=== PATIENT | female | born 1950 | race Caucasian/White ===

== ENCOUNTER → 2018-02-14 | Outpatient (CLI) | payer OTHER, MEDICAID ==
[~2018-02-14] MED LIST: ACIDOPHILUS1 EAC4 PO; AMITRIPTYLINE H25 M2 PO; AMITRIPTYLINE H50 M4 PO; ASPIR 8181 MG PO; ATORVASTATIN CA40 MG PO; B-12500 MCG PO; BACTRIM DS TAB1 EACH PO; BISACODYL SUPP10 MG; BOOST BREEZE237 ML PO; CARBIDOPA-LEVO1 EAC9 PO; CARBIDOPA25 MG PO; CELEXA20 MG PO; CHANTIX0.5 MG PO; CITALOPRAM HBR40 MG PO; CLEOCIN HCL300 MG PO; CLONAZEPAM 0.50.5 M1 PO; CLONAZEPAM 1 MG1 M1 PO; CLONAZEPAM0.5 MG PO; COLACE100 MG PO; DAKIN'S473 M1; ENZYME DIGEST1 EACH PO; FISH OIL 1,001000 M2 PO; GAS RELIEF80 MG PO; HYDROCODON-ACE1 EAC7 PO; HYDROCODONE-ACE15 ML PER TUBE; HYDROCODONE-ACE15 ML PO; HYDROCORTISONE30 G9; IRON325 PO; LEVOTHYROXIN0.125 M1 PO; LEVOTHYROXIN0.137 M1 PO; LEVOTHYROXINE 0.15MG PO; LIDODERM1 EACH TOP; LINEZOLID600 MG PO; LIPITOR80 MG PO; MACROBID 100 M100 M1 PO; MELATIN3 MG PO; MELATONIN5 M4 PO; MIRAPEX0.5 MG PO; MIRAPEX1 MG PO; NEURONTIN300 MG PO; NEURONTIN600 MG PO; NITROMIST8.5 GM SUBLING; NITROSTAT0.4 M1 SUBLING; NORCO 10-325 T1 EACH PO; NORCO 5-325 TA1 EACH PO; OXYCODONE HCL E10 MG PO; OXYCODONE HCL10 MG PO; PERCOCET 5-3251 EACH PO; PERCOCET PO; PHENERGAN 25 MG25 M1 PO; PHENERGAN 25 MG25 MG PO; PLAVIX 75 MG TA75 M1 PO; PROBIOTIC1 EAC1 PO; PROMOD946 ML; PROTONIX40 M1 PO; REQUIP 1 MG TABL1 M1 PO; ROXICODONE5 M2 PO; SENNA PLUS TAB1 EACH PO; SENOKOT-S1 TA1 PO; SERTRALINE HCL100 MG PO; SSD CREAM 1% 5050 GM TOP; SYNTHROID150 MCG PO; TRAMADOL 50 MG50 MG PO; TRANSDERM-SCO1 PATC1 TD; TRAZODONE HCL50 MG PO; TRINATE TABLET1 TAB PO; TYLENOL325 MG PO; VANCOMYCIN1 GM/1001 IV; VITAMIN D1000 UNI1 PO; VITAMINC500 PO; XANAX 0.5 MG0.5 MG PO; ZOFRAN ODT4 MG DISSOLVE; ZOFRAN ODT4 MG PO
== END ==
LOC: M.RAD 02-12 13:30
DX: Z12.31 Encounter for screening mammogram for malignant neoplasm of breast (principal); M85.88 Other specified disorders of bone density and structure, other site; Z78.0 Asymptomatic menopausal state

== ENCOUNTER 2018-04-27 11:19 | Inpatient (IN) | payer OTHER, MEDICAID ==
[~2018-04-27] VITALS: Ht 165.1 cm; Wt 68.0 kg
[~2018-04-27 11:19] MED LIST changes: -ACIDOPHILUS1 EAC4 PO; -GAS RELIEF80 MG PO; -LIDODERM1 EACH TOP; -LIPITOR80 MG PO; -NITROSTAT0.4 M1 SUBLING; -TRAZODONE HCL50 MG PO
[2018-04-27 11:22] VITALS: BP 91/68
[2018-04-27 11:49] LABS: ABSOLUTE EOSINOPHILS 0.2 thou/uL (0.0-0.7); ABSOLUTE MONOCYTES 0.6 thou/uL (0.0-1.2); ABSOLUTE NEUTROPHILS 4.1 thou/uL (1.6-8.1); BASOPHILS 0.6 %; EOSINOPHILS 2.3 %; HEMATOCRIT 35.8 % (37.0-47.0); HEMOGLOBIN 11.9 gm/dL (12.0-15.0); LYMPHOCYTES 37.6 %; MCH 31.5 pg (26.0-34.0); MCHC 33.3 g/dL (28.0-37.0); MCV 94.5 fL (80.0-100.0); MPV 7.8 fl. (7.2-11.1); NUCLEATED RBCS 0 /100WBC; PLATELET COUNT* 252 thou/uL (150-400); POLYS 52.5 %; RBC 3.78 mil/uL (4.20-5.00); RDW-CV 12.8 % (10.5-14.5); WBC 7.9 thou/uL (4.0-11.0)
[2018-04-27] MEDS ORDERED: CLONAZEPAM 0.50.5 M1 PO (11:49)
[2018-04-27] MEDS ORDERED: MIRAPEX0.5 MG PO (11:50)
[2018-04-27] MEDS ORDERED: FISH OIL 1,001000 M2 PO (11:51)
[2018-04-27] MEDS ORDERED: TRAZODONE HCL50 MG PO (11:51)
[2018-04-27 11:58] LABS: ANION GAP 6 mmol/L (7-16); BUN 14 mg/dL (7-18); CALCIUM 8.5 mg/dL (8.5-10.1); CHLORIDE 106 mmol/L (98-107); CO2 27 mmol/L (21-32); CREATININE 0.8 mg/dL (0.6-1.3); GLUCOSE 128 mg/dL (70-99); POTASSIUM 3.6 mmol/L (3.5-5.1); SODIUM 139 mmol/L (136-145)
--- NOTE | 2018-04-27 11:58 | NUR ---
THERE WAS NO ASPIRIN IN THE MED ROOM WHEN GATHERING MEDS FOR PT. PHARMACY WAS CONTACTED TO REFILL.
[2018-04-27 11:59] LABS: PROTIME 10.2 Seconds (9.20-11.50)
[2018-04-27 12:08] LABS: ALBUMIN 3.4 g/dL (3.4-5.0); ALKALINE PHOSPHATASE 77 U/L (46-116); LIPASE 70 U/L (73-393); MAGNESIUM 1.9 mg/dL (1.8-2.4); NT-PRO BRAIN NAT PEPTIDE 167 pg/mL (<300); SGOT 14 U/L (15-37); SGPT 12 U/L (30-65); TOTAL BILIRUBIN 0.4 mg/dL (<0.1-1.0); TOTAL PROTEIN 6.8 g/dL (6.4-8.2); TROPONIN-I LEVEL <0.06 ng/mL (<0.06)
[2018-04-27 13:05] VITALS: BP 111/54
--- NOTE | 2018-04-27 13:22 | NUR ---
PT'S FRIEND, ELVIA HERNANDEZ HAS THE PT'S PERMISSION TO RECEIVE INFORMATION IF SHE CALLS TO INQUIRE ABOUT HER. CELL: [phone]
[2018-04-27 16:00] VITALS: BP 137/69
[2018-04-27 19:24] LABS: ABSOLUTE EOSINOPHILS 0.2 thou/uL (0.0-0.7); ABSOLUTE MONOCYTES 0.6 thou/uL (0.0-1.2); ABSOLUTE NEUTROPHILS 4.2 thou/uL (1.6-8.1); BASOPHILS 0.3 %; EOSINOPHILS 2.6 %; HEMATOCRIT 34.2 % (37.0-47.0); HEMOGLOBIN 11.5 gm/dL (12.0-15.0); LYMPHOCYTES 37.6 %; MCH 31.9 pg (26.0-34.0); MCHC 33.7 g/dL (28.0-37.0); MCV 94.6 fL (80.0-100.0); MONOCYTES 7.4 %; MPV 7.9 fl. (7.2-11.1); NUCLEATED RBCS 0 /100WBC; PLATELET COUNT* 236 thou/uL (150-400); POLYS 52.1 %; RBC 3.62 mil/uL (4.20-5.00)
[2018-04-27 19:28] LABS: CALCIUM 7.9 mg/dL (8.5-10.1); CREATININE 0.7 mg/dL (0.6-1.3)
[2018-04-27 19:37] LABS: BE -0.2 mmol/L (-2 to +3); HCO3 25.4 mmol/L (22.0-26.0); PCO2 45.7 mmHg (35.0-45.0); pH 7.363 (7.340-7.450)
[2018-04-27 19:39] LABS: PO2 127.3 mmHg (75.0-100.0)
[2018-04-27 20:10] VITALS: BP 110/59
--- NOTE | 2018-04-27 21:14 | NUR ---
I ASSUMED CARE OF THE PATIENT AT 1315 AN ADMIT FROM THE ED. SHE ARRIVED FROM HOME ALONE WITH CHEST PAIN OF 8/10 THAT RADIATES TO THE JAW, NAUSEA, SHORTNESS OF AIR AND HAS BEEN A SMOKER FOR 40 PLUS YEARS. CARDIOLOGY CONSULT HAS BEEN CALLED IN. SHE IS A DNR AND ON 3 LITERS NASAL CANNULA. HOME MEDS WERE ACTIVATED PER DR NUNEZ. A RAPID RESPONSE WAS CALLED AT 1840. LABS AND RT WERE ORDERED. A CTA PE WAS ORDERED, BUT A ROUTE COULD NOT BE OBTAINED, SO A VQ SCAN WAS ORDERED INSTEAD AND SOMEONE IS COMING IN. ABG RESULTS WERE CALLED TO DR NUNEZ AND NO NEW ORDERS WERE OBTAINED. DR BRADLEY REQUESTED MEDICAL RECORDS FOR THE ANGIO BALLOON THAT PATIENT SAID SHE HAD. SHE SAYS IT WAS 35+ YEARS AGO AND CAN'T REMEMBER WHICH HOSPITAL. SHE DID HAVE A STRESS TEST AT [facility] 10 YEARS AGO. A RAPID RESPONSE WAS CALLED WHEN PATIENT WAS HAVING 10/10 CHEST PAIN AND UNABLE TO BREATHE. PAIN REPRODUCES ON LEFT STERNAL BORDER IN 4TH ICS WITH PALPATATIONS. 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 WILL CONTINUE TO MONITOR.
[2018-04-28] VITALS: BP 74/25
[2018-04-28 04:00] VITALS: BP 95/43
[2018-04-28 05:23] LABS: HEMATOCRIT 33.3 % (37.0-47.0); MCH 31.7 pg (26.0-34.0); MCHC 32.9 g/dL (28.0-37.0); MCV 96.5 fL (80.0-100.0); RBC 3.45 mil/uL (4.20-5.00); WBC 5.7 thou/uL (4.0-11.0)
[2018-04-28 06:01] LABS: ALBUMIN 2.8 g/dL (3.4-5.0); ALKALINE PHOSPHATASE 69 U/L (46-116); ANION GAP 2 mmol/L (7-16); BUN 12 mg/dL (7-18); CALCIUM 7.8 mg/dL (8.5-10.1); CHLORIDE 110 mmol/L (98-107); CO2 30 mmol/L (21-32); CREATININE 0.7 mg/dL (0.6-1.3); GLUCOSE 93 mg/dL (70-99); MAGNESIUM 2.2 mg/dL (1.8-2.4); POTASSIUM 4.1 mmol/L (3.5-5.1); SGOT 17 U/L (15-37); SGPT 10 U/L (30-65); SODIUM 142 mmol/L (136-145); TOTAL BILIRUBIN 0.3 mg/dL (<0.1-1.0); TOTAL PROTEIN 5.8 g/dL (6.4-8.2); TROPONIN-I LEVEL <0.06 ng/mL (<0.06)
[2018-04-28 08:15] VITALS: BP 104/44
[2018-04-28 12:20] VITALS: BP 95/39
--- NOTE | 2018-04-28 14:00 | EKG ---
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 : 1950 Requested By: Keven Guevara Order Number: [id number] Reading MD: Flavio Le Measurements Intervals [place] Rate: 80 P: 71 IN: 153 QRS: -35 QRSD: 94 T: 54 QT: 378 QTc: 436 Interpretive Statements Sinus rhythm Probable left atrial enlargement Left axis deviation Low voltage, extremity leads Abnormal R-wave progression, early transition Compared to ECG 08/26/2017 00:11:01 no change Electronically Signed On 04-28-2018 14:00:09 CDT by Flavio Le [email or web address] <ELECTRONICALLY SIGNED> By: Flavio Le MD, FACC 04/28/18 1400 1124 1124 Flavio Le MD, [facility] /EPI
--- NOTE | 2018-04-28 14:04 | EKG ---
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
--- NOTE | 2018-04-28 19:14 | NUR ---
I ASSUMED CARE OF THE PATIENT AT 0700. SHE IS ALERT AND ORIENTED X4 AND IS UP AD CRISTINA. HOURLY ROUNDING WAS COMPLETED AND PATIENT NEEDS WERE MET. PAIN IS MANAGED WITH PRN MEDS. BED IS IN THE LOW LOCKED POSITION AND CALL LIGHT WAS IN REACH. CARDIAC CATH WAS COMPLETED AND DR BRADLEY DIDN'T FIND ANYTHING. GI WAS CONSULTED. CT WAS COMPLETED. WILL CONTINUE TO MONITOR.
[2018-04-28 20:00] VITALS: BP 84/41
[2018-04-29] VITALS: BP 105/49
[2018-04-29 03:42] VITALS: BP 109/51
--- NOTE | 2018-04-29 05:06 | NUR ---
ASSUMED PT CARE AT 1930. NURSING ASSESSMENT COMPLETED AT START OF SHIFT. PT VERY DROWSY BUT EASILY AROUSABLE AT START OF SHIFT. PT ON FIRER KILN TRACING SINUS BRADICARDIA. HOURLY ROUNDING COMPLETED. PT VOICED CHEST AND BACK PAIN THIS SHIFT, WITH PARTIAL RELIEF. RIGHT RADIAL DRESSING CDI THIS SHIFT. CALL LIGHT WITHIN REACH.
--- NOTE | 2018-04-29 07:19 | CON ---
[address] [address] CONSULTATION Name: JULIOCESAR MARTIN Room: [address] IN .R.#: [id number] Admission: 04/27/18 Attend Phys: Toño Albarran, Discharge: Date of : 46 Report #: [id number] THIS REPORT FOR: //name// CC: Kash Albarran DATE OF SERVICE: 04/28/2018 HISTORY OF PRESENT ILLNESS: The patient is a 67-year-old single white female who I was asked to see in the hospital today after she complained of chest pain. The history is obtained from the patient. Unfortunately, minimal old records available. She states that almost 30 years ago. She had a myocardial infarction at [facility]. She was transferred to [facility] and had balloon angioplasty performed, but no stent. She had a repeat heart catheterization about 10 years ago at [facility] and was told there was no significant restenosis at that time. She has not had a stress test for years and does not see a router setter at this time. She does exercise on a regular basis. Yesterday, she began to have intermittent chest pressure. It was not related to food. There was no radiation to her arms. She felt short of breath, diaphoretic, nauseated. She came to the Emergency Room here at [place] yesterday and was admitted. I was asked to see for further evaluation and treatment. She continues to have the chest pain. The pain is not related to food. She has had no blood in the stool. Denied any fever or cough. Denied recent trauma to her chest or rash. She denies significant exertional dyspnea, palpitations or syncope. PAST MEDICAL HISTORY: Carotid endarterectomy at [facility] years ago. She has had multiple abdominal surgeries, eventually wound up with a colostomy at [place]. She has had a cholecystectomy, hysterectomy, bilateral knee surgery. She has a history of hyperlipidemia. She has Parkinson disease, restless leg syndrome. She has fallen in the past. CURRENT MEDICATIONS: Include Lipitor, aspirin, Sinemet. ALLERGIES: SHE HAS INTOLERANCE TO FLAGYL. FAMILY HISTORY: Her mother had heart disease. SOCIAL HISTORY: She is , lives in [place]. She used to smoke up to half pack of cigarettes a day. No alcohol abuse. REVIEW OF SYSTEMS: She had a previous history of stroke with aphasia. She has had no asthma, peptic ulcer disease, liver disease, kidney disease, cancer, psychiatric illness, [place] [address] CONSULTATION Name: JULIOCESAR MARTIN Room: [address]#: [id number] Admission: 04/27/18 Attend Phys: Toño Albarran, Discharge: Date of : 46 Report #: [id number] PHYSICAL EXAMINATION: GENERAL: Revealed an elderly female who appeared in no acute distress. VITAL SIGNS: She had blood pressure of 110/60, pulse 66. She was afebrile. HEENT: She is anicteric. Conjunctivae are pink. Mucous membranes are moist. NECK: Veins nondistended. No carotid bruits. Neck is supple. CHEST: Clear to auscultation. CARDIOVASCULAR: Regular rate and rhythm without murmur. ABDOMEN: Soft, nontender. Colostomy noted. EXTREMITIES: Had no edema. Dorsalis pedis pulse 2+ bilaterally. SKIN: Warm, dry. NEUROLOGIC: Nonfocal. ECG showed a sinus rhythm. There was evidence of possible previous anterior infarction, but no acute ST or T-wave change. Her workup, she had a chest x-ray that showed chronic changes of the lung, but no acute abnormality. She had a VQ scan of the lungs because of shortness of breath and chest pain that showed no perfusion abnormalities. LABORATORY DATA: Sodium 142, creatinine 0.7. Liver function studies were normal. Albumin 2.8. Troponin was all 0.06. White blood cell count 5.7, hemoglobin 11.0. IMPRESSION AND RECOMMENDATIONS: 1. Chest pain. Suspect unstable angina. Recommend cardiac catheterization. 2. Hyperlipidemia. The patient is on a statin drug. 3. Parkinson's disease. 4. Restless leg syndrome. 5. Previous colostomy. 6. Tobacco abuse. 7. Previous stroke with carotid endarterectomy. <ELECTRONICALLY SIGNED> By: Flavio Le MD, [facility] 04/29/18 0719 1016 [id number] Le MD, FACC /nt
[2018-04-29 08:00] VITALS: BP 127/53
[2018-04-29] MEDS ORDERED: GAS RELIEF80 MG PO (11:44)
[2018-04-29] MEDS ORDERED: PROTONIX40 M1 PO (11:44)
[2018-04-29 11:58] VITALS: BP 127/53
--- NOTE | 2018-04-29 12:06 | NUR ---
RECEIVED REPORT FROM HENRY QUEZADA. ASSUMED CARE OF PT AROUND 0730. PT A&O X4. VSS. O2 SAT 92% ON RA. ELECTRONIC WARFARE LINGUIST IN PLACE TRACING SB TO SR. AM ASSESSMENT AND VITALS COMPLETED CHARTED. PT REPORTS CHEST PRESSURE, BACK PAIN AND RIB PAIN WITH INSPIRATION THAT HAS BEEN MANAGED WITH PO AND IV PAIN MEDICAITON TO PT RELIEF. PT EATING AND DRINKING WITHOUT ISSUE. DISCHARGE ORDERS RECEIVED. DISCHARGE COMPLTED CHARTED. DISCHAGE SUMMARY GONE OVER WITH PT - PT COMMUNCIATES UNDERSTANDING. PT AWARE TO F/U WITH HER GI SPECIALIST. SCANS FROM THIS VISIT TO BE SENT TO DR GREGORIO PER REQUEST FROM DR. ABARCA. IV AND ELECTRONIC WARFARE LINGUIST REMOVED. ALL BELONGINGS GATHERED AND READY TO SEND WITH THE PT. HOURLY ROUNDING PERFORMED. FALL PRECAUTIONS IN PLACE. CALL LIGHT IS WITHIN REACH, WCTM UNTIL PT READY TO LEAVE UNIT.
[2018-04-29] MEDS ORDERED: LIDODERM1 EACH TOP (12:17)
[2018-04-29 12:26] VITALS: BP 125/77
--- NOTE | 2018-04-29 18:51 | 2DMMODE ---
[place] [address] 2 D/M-MODE ECHOCARDIOGRAM Name: JULIOCESAR MARTIN Room: [address] IN [facility]#: [id number] Admission: 04/27/18 Attend Phys: Toño Curiel Discharge: 04/29/18 Date of : 46 Date of Service: 04/29/18 1851 Report #: [id number] THIS REPORT FOR: //name// APPROVED REPORT Study performed: 04/29/2018 10:06:31 EXAM: Comprehensive 2D, Doppler, and color-flow Echocardiogram Patient Location: In-Patient Room #: [facility] Status: routine BSA: 1.71 HR: 61 bpm BP: 109/51 mmHg Rhythm: NSR Other Information Study Quality: Good Indications Chest Pain 2D Dimensions LVEF(%): 78.84 (>50%) IVSd: 9.43 (7-11mm) LVOT Diam: 19.19 (18-24mm) LVDd: 45.51 mm PWd: 8.84 (7-11mm) Ascending Ao: 29.52 (22-36mm) LVDs: 23.96 (25-40mm) Aortic Root: 30.98 mm Perez's LVEF: 78.84 % Volumes Left Atrial Volume (Systole) LA ESV Index: 31.80 mL/m2 Aortic Valve AoV Peak Edawrd.: 1.75 m/s AO Peak Gr.: 12.22 mmHg LVOT Max P.35 mmHg AO Mean Gr.: 6.67 mmHg LVOT Mean P.42 mmHg LVOT Max V: 1.16 m/s AO V2 VTI: 38.60 cm LVOT Mean V: 0.70 m/s LIZZ (VTI): 2.12 cm2 LVOT V1 VTI: 28.27 cm Mitral Valve E/A Ratio: 1.30 [place] [address] 2 D/M-MODE ECHOCARDIOGRAM Name: JULIOCESAR MARTIN Room: [address]#: [id number] Admission: 04/27/18 Attend Phys: Toño Curiel Discharge: 04/29/18 Date of : 46 Date of Service: 04/29/18 1851 Report #: [id number] MV Decel. Time: 186.47 ms MV E Max Edward.: 1.43 m/s MV PHT: 54.08 ms MVA (PHT): 4.07 cm2 TDI E/Lateral E': 11.92 E/Medial E': 11.00 Medial E' Edward.: 0.13 m/s Lateral E' Edward.: 0.12 m/s Pulmonary Valve PV Peak Edward.: 0.89 m/s PV Peak Gr.: 3.18 mmHg Tricuspid Valve RAP Estimate: 5.00 mmHg TR Peak Gr.: 25.27 mmHg RVSP: 30.27 mmHg PA Pressure: 30.27 mmHg Left Ventricle The left ventricle is normal size. There is normal LV segmental wall motion. There is normal left ventricular wall thickness. Left ventricular systolic function is normal. The left ventricular ejection fraction is within the normal range. LVEF is 60-65%. The left ventricular diastolic function is normal. Right Ventricle The right ventricle is normal size. The right ventricular systolic function is normal. Atria The left atrium size is normal. The right atrium size is normal. Aortic Valve Mild aortic valve sclerosis. No aortic regurgitation is present. There is no aortic valvular stenosis. Mitral Valve Mild mitral annular calcification. Mild mitral regurgitation. No evidence of mitral valve stenosis. Tricuspid Valve The tricuspid valve is normal in structure. Mild tricuspid regurgitation. Borderline pulmonary hypertension[place] [address] 2 D/M-MODE ECHOCARDIOGRAM Name: JULIOCESAR MARTIN Abdoul Room: [address]#: [id number] Admission: 04/27/18 Attend Phys: Toño Curiel Discharge: 04/29/18 Date of : 46 Date of Service: 04/29/18 1851 Report #: [id number] The pulmonary valve is normal in structure. There is no pulmonic valvular regurgitation. Great Vessels The aortic root is normal in size. IVC is normal in size and collapses with >50% inspiration Pericardium There is no pericardial effusion. <Conclusion> The left ventricle is normal size. There is normal left ventricular wall thickness. Left ventricular systolic function is normal. The left ventricular ejection fraction is within the normal range. LVEF is 60-65%. The left ventricular diastolic function is normal. The right ventricle is normal size. The left atrium size is normal. Mild aortic valve sclerosis. No aortic regurgitation is present. There is no aortic valvular stenosis. Mild mitral annular calcification. Mild mitral regurgitation. No evidence of mitral valve stenosis. The tricuspid valve is normal in structure. IVC is normal in size and collapses with >50% inspiration There is no pericardial effusion. There is normal LV segmental wall motion. <ELECTRONICALLY SIGNED> By: Chuy Flynn MD, FACC 04/29/181850 50 50 Chuy Flynn MD, FACC /INF
--- NOTE | 2018-05-01 07:52 | CARD ---
[address] [address] CARDIAC CATH REPORT Name: MARIOJULIOCESAR C Room: [address]#: [id number] Admission: 04/27/18 Attend Phys: Toño Albarran, Discharge: 04/29/18 Date of : 46 Report #: [id number] THIS REPORT FOR: //name// APPROVED REPORT Study performed: 04/28/2018 13:27:39 Patient Details Patient Status: In-Patient Room #: 205 The patient is a 67 year-old female Event Personnel Flavio Le Host And Hostess, Ashish Clark Monitor, Polly Longo RTR Scrub, Ely Kelly molasses preparer Performed Left Heart Cath w/or w/o Coronaries [id number] [facility] , Left Heart CatheterizationHemostasis with Hemoband Indication Chest pain Risk Factors Tobacco History () Previous Procedures/Diagnoses Previous PCI Admission/Lab Medications/Medications given during procedure Heparin Low Molecular Weight Procedure Narrative The patient was brought electively to the Cardiac Catheterization Laboratory and was prepped and draped in a sterile manner. The right wrist was infiltrated with 2% Lidocaine subcutaneous anesthesia. A Slender Glidesheath sheath was inserted into the right radial artery. Coronary angiography was performed using coronary diagnostic catheters. The right coronary system was accessed and visualized with a JR4 5fr catheter. The left coronary system was accessed and visualized with a JL 3.5 5fr catheter. The left ventricle was accessed and visualized with a PC: Angled Pig 5fr catheter. Left ventricular/Aortic Valve gradient assessed via catheter pullback. Left ventriculogram was performed in DENT projection. Closure device was deployed with a 6 Fr vascband. The patient tolerated the procedure well and there were [place] [address] CARDIAC CATH REPORT Name: JULIOCESAR MARTIN Room: [address]#: [id number] Admission: 04/27/18 Attend Phys: Toño Albarran, Discharge: 04/29/18 Date of : 46 Report #: [id number] procedure. There was no hematoma. Intraoperative Conscious Sedation Sedation start time: 13:31 Case end Time: 13:51 Versed 2 mg Fluoro Time: 2.1 minutes Dose: DAP 19436 cGycm2 314 mGy Contrast Type and Amount: Omnipaque 55 ml Coronary Angiography The patient's coronary anatomy is right dominant. [place] Artery Percent Stenosis Left Main: 0 % Prox LAD: 0 % Mid/Distal LAD: 0 % Circumflex: 0 % RCA: 0 % Ramus: % Left Ventriculography The left ventricle is normal in size with normal contractility. The left ventricular ejection fraction is estimated to be 60-65%. Left ventricular wall motion abnormalities are not present. There is 1+ mitral insufficiency. Hemodynamics The aortic pressure is 105/38 mmHg with a mean of mmHg. The left ventricular pressure is 119/1 mmHg with a mean of mmHg. The left ventricular end diastolic pressure is 16 mmHg. There was no gradient across the aortic valve upon pullback. Pullback from the left ventricle to the aorta revealed no gradient across the aortic valve. Conclusion 1. normal coronary arteries 2. normal LV function Recommendations Aggressive Medical Therapy <ELECTRONICALLY SIGNED> By: Flavio Le MD, [facility] 04/29/18 1246 1246 1246Daradha Le MD, [facility] /INF
== END 2018-04-29 13:01 | disposition home or self-care (01) | DRG 287 ==
LOC: M.ERS 11:19 → M.2W 12:15 → M.TBA-ER 12:15 → M.2W 13:12
PROVIDERS: Emergency Medicine Emergency Medical Services; ADMIT Family Medicine
DX: R07.89 Other chest pain (principal); K22.4 Dyskinesia of esophagus; G20 Parkinson's disease; M47.892 Other spondylosis, cervical region; E03.9 Hypothyroidism, unspecified; E78.5 Hyperlipidemia, unspecified; I25.10 Atherosclerotic heart disease of native coronary artery without angina pectoris; G25.81 Restless legs syndrome; G89.4 Chronic pain syndrome; I95.9 Hypotension, unspecified; F17.210 Nicotine dependence, cigarettes, uncomplicated; Z90.710 Acquired absence of both cervix and uterus; Z86.73 Personal history of transient ischemic attack (TIA), and cerebral infarction without residual deficits; Z87.828 Personal history of other (healed) physical injury and trauma; Z93.3 Colostomy status; I25.2 Old myocardial infarction; Z90.49 Acquired absence of other specified parts of digestive tract; Z86.14 Personal history of Methicillin resistant Staphylococcus aureus infection; Z79.899 Other long term (current) drug therapy; Z88.1 Allergy status to other antibiotic agents; Z88.8 Allergy status to other drugs, medicaments and biological substances; Z82.49 Family history of ischemic heart disease and other diseases of the circulatory system

== ENCOUNTER 2018-05-01 21:06 | Inpatient (IN) | payer OTHER, MEDICAID ==
[~2018-05-01] VITALS: Ht 152.4 cm; Wt 66.2 kg
--- NOTE | ~2018-05-01 | PROC ---
[address] [address] PROCEDURE REPORT Name: JULIOCESAR MARTIN Room: [address]#: [id number] Admission: 05/02/18 Attend Phys: Julio Breen MD Discharge: 05/04/18 Date of : 46 Report #: [id number] THIS REPORT FOR: //name// For GI report, please see the Provation report in Perceptive 7 content. By: 1121Medical Records Staff KEVON /SOY
[~2018-05-01 21:06] MED LIST changes: +GAS RELIEF80 MG PO; +LIDODERM1 EACH TOP; +TRAZODONE HCL50 MG PO
[2018-05-01 21:07] VITALS: BP 132/63
[2018-05-01 21:50] LABS: ABSOLUTE BASOPHILS 0.1 thou/uL (0.0-0.2); ABSOLUTE EOSINOPHILS 0.2 thou/uL (0.0-0.7); ABSOLUTE MONOCYTES 0.4 thou/uL (0.0-1.2); ABSOLUTE NEUTROPHILS 4.3 thou/uL (1.6-8.1); BASOPHILS 1.2 %; EOSINOPHILS 2.3 %; HEMATOCRIT 32.8 % (37.0-47.0); LYMPHOCYTES 28.5 %; MCH 31.6 pg (26.0-34.0); MCHC 33.5 g/dL (28.0-37.0); MCV 94.1 fL (80.0-100.0); MONOCYTES 6.3 %; MPV 7.6 fl. (7.2-11.1); NUCLEATED RBCS 0 /100WBC; PLATELET COUNT* 226 thou/uL (150-400); POLYS 61.7 %; RBC 3.48 mil/uL (4.20-5.00); RDW-CV 13.2 % (10.5-14.5)
[2018-05-01 21:58] LABS: PROTIME 10.2 Seconds (9.20-11.50)
[2018-05-01 22:00] LABS: ANION GAP 5 mmol/L (7-16); BUN 16 mg/dL (7-18); CALCIUM 8.7 mg/dL (8.5-10.1); CHLORIDE 106 mmol/L (98-107); CO2 30 mmol/L (21-32); CREATININE 0.8 mg/dL (0.6-1.3); GLUCOSE 109 mg/dL (70-99); POTASSIUM 3.8 mmol/L (3.5-5.1); SODIUM 141 mmol/L (136-145)
[2018-05-01 22:15] LABS: ALBUMIN 3.3 g/dL (3.4-5.0); ALKALINE PHOSPHATASE 70 U/L (46-116); LIPASE 92 U/L (73-393); NT-PRO BRAIN NAT PEPTIDE 155 pg/mL (<300); SGOT 20 U/L (15-37); SGPT 16 U/L (30-65); TOTAL BILIRUBIN 0.2 mg/dL (<0.1-1.0); TOTAL PROTEIN 6.6 g/dL (6.4-8.2); TROPONIN-I LEVEL <0.06 ng/mL (<0.06)
[2018-05-01 22:54] LABS: URINE BILIRUBIN NEGATIVE (Negative); URINE BLOOD NEGATIVE (Negative); URINE CLARITY CLEAR; URINE COLOR YELLOW; URINE GLUCOSE-RANDOM NEGATIVE (Negative); URINE KETONES NEGATIVE (Negative); URINE LEUKOCYTES-REFLEX TRACE (Negative); URINE NITRITE-REFLEX NEGATIVE (Negative); URINE PROTEIN NEGATIVE (Negative); URINE SPECIFIC GRAVITY 1.025 (1.005-1.030); URINE UROBILINOGEN 0.2 E.U./dl (0.2-1.0)
[2018-05-01 23:01] LABS: AMORPHOUS URATES Few /LPF (None Seen); BACTERIA-REFLEX >30 Many /HPF (None Seen); HYALINE CASTS 0-3 Few /LPF (None Seen); MUCUS 4-6 Moderate strn/LPF (None Seen); SQUAMOUS 0-3 Few /LPF (0-3); URINE RBC 3-10 Few /HPF (0-2); WBC CLUMPS Few (None Seen)
[2018-05-02 01:19] VITALS: BP 136/59
[2018-05-02 01:30] VITALS: BP 120/70
[2018-05-02 07:28] LABS: HEMATOCRIT 30.5 % (37.0-47.0); HEMOGLOBIN 10.2 gm/dL (12.0-15.0); MCHC 33.5 g/dL (28.0-37.0); MCV 95.3 fL (80.0-100.0); MPV 7.6 fl. (7.2-11.1); RBC 3.2 mil/uL (4.20-5.00); RDW-CV 13.3 % (10.5-14.5); WBC 5.5 thou/uL (4.0-11.0)
[2018-05-02 07:55] LABS: ALBUMIN 2.8 g/dL (3.4-5.0); CALCIUM 7.8 mg/dL (8.5-10.1); CREATININE 0.6 mg/dL (0.6-1.3); POTASSIUM 3.5 mmol/L (3.5-5.1); TOTAL BILIRUBIN 0.3 mg/dL (<0.1-1.0); TOTAL PROTEIN 5.8 g/dL (6.4-8.2)
[2018-05-02 08:00] VITALS: BP 115/83
[2018-05-02] MEDS ORDERED: VITAMINC500 PO (11:46)
[2018-05-02] MEDS ORDERED: NITROSTAT0.4 M1 SUBLING (11:49)
[2018-05-02] MEDS ORDERED: PROBIOTIC1 EAC1 PO (12:01)
[2018-05-02 12:04] VITALS: BP 93/36
--- NOTE | 2018-05-02 13:06 | EKG ---
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 : 1950 Requested By: Maura Christy Order Number: [id number] MD: Chuy Flynn Measurements Intervals [place] Rate: 84 P: 79 LA: 143 QRS: -50 QRSD: 130 T: 61 QT: 380 QTc: 450 Interpretive Statements Sinus rhythm LAE, consider biatrial enlargement Nonspecific IVCD with LAD Baseline wander in lead(s) II,III,aVF,V6 Compared to ECG 04/27/2018 18:36:17 Intraventricular conduction delay now present ST (T wave) deviation now present Left-axis deviation no longer present Electronically Signed On 05-02-2018 13:05:49 CDT by Chuy Flynn [email or web address] <ELECTRONICALLY SIGNED> By: Chuy Flynn MD, [facility] 05/02/18 1305 09 09 Chuy Flynn MD, [facility] /EPI
[2018-05-02 16:00] VITALS: BP 115/50
[2018-05-02 18:24] LABS: % SATURATION 31 % (20-39); IRON 79 ug/dL (50-175)
[2018-05-02 20:00] VITALS: BP 126/53
[2018-05-03] VITALS: BP 110/49
[2018-05-03 04:47] VITALS: BP 104/46
[2018-05-03 08:00] VITALS: BP 148/68
[2018-05-03 16:00] VITALS: BP 113/60
[2018-05-03 19:40] VITALS: BP 160/79
[2018-05-04 03:52] VITALS: BP 127/63
[2018-05-04 08:12] VITALS: BP 132/60
[2018-05-04] MEDS ORDERED: MACROBID 100 M100 M1 PO (11:15)
[2018-05-04] MEDS ORDERED: ACIDOPHILUS1 EAC4 PO (11:15)
[2018-05-04 13:58] VITALS: BP 132/60
[2018-05-04 14:50] VITALS: BP 132/60
--- NOTE | 2018-05-13 07:11 | CON ---
[address] [address] CONSULTATION Name: JULIOCESAR MARTIN Room: [address] IN .R.#: [id number] Admission: 05/02/18 Attend Phys: Julio Breen MD Discharge: 05/04/18 Date of : 46 Report #: [id number] THIS REPORT FOR: //name// CC: Julio Hightower MD DICTATED BY: Marisol Mathis [facility] DATE OF SERVICE: 05/02/2018 REFERRING PHYSICIAN: Julio Breen MD Please note at the time of this dictation, the patient was seen and physically examined by myself. REASON FOR CONSULTATION: Epigastric pain. HISTORY OF PRESENT ILLNESS: This is a pleasant 67-year-old female who presented to the Emergency Room initially over the weekend for this left-sided chest pain radiating into her left jaw and down her arm and through to her back. She states it felt like an elephant was sitting on her chest. It was very heavy and worsening with taking a deep breath. She underwent a catheterization at that time, it was all negative. She did have some nausea associated with some right upper quadrant and epigastric pain also. The patient was discharged and she came back again with worsening of these symptoms. She denies any heartburn. She did mention that initially when this first happened over the weekend, she had black noted stool in her colostomy and then, she states again earlier today, she had some black stool that was noted as well. She does take an iron supplement and has been on that for a halfway. She states it has been years since she had an EGD and does not recall anything that was wrong at that time. She has had numerous colonoscopies over the past couple of years, the last one being with Dr. Azul Brown a couple of years ago. ALLERGIES: CIPRO, FLAGYL, VIOXX, ROTIGOTINE. MEDICATIONS: From home include a baby aspirin, Zofran, simethicone, probiotic and Protonix as well as clonazepam, Desyrel, fish oil, vitamin D, carbidopa/levodopa, nitroglycerin, Neurontin, Synthroid, Colace, , melatonin, Roxicodone, B12, iron, digestive enzymes, Mirapex and lidocaine. PAST MEDICAL HISTORY: Significant for stenosis of L4-L5, hypothyroidism, chest pain, angina. She has had a history of CVAs in the past, no residual; high cholesterol; Graves' disease; history [place] C. [place] in 2017[place] [address] CONSULTATION Name: JULIOCESAR MARTIN Room: [address] IN M.R.#: [id number] Admission: 05/02/18 Attend Phys: Julio Breen MD Discharge: 05/04/18 Date of : 46 Report #: [id number] PAST SURGICAL HISTORY: She has had extensive abdominal surgery, numerous last one being in 12/2016 where she had a complex abdominal wall reconstruction because she had MRSA in her abdominal wall. She has had abscesses drained in her right lower quadrant. She has a colostomy, cholecystectomy, bilateral knee surgeries, exploratory lap, right carotid endarterectomy and vaginal hysterectomy. FAMILY HISTORY: Negative. SOCIAL HISTORY: She does smoke. Denies any alcohol or illegal drug use at this time. REVIEW OF SYSTEMS: Twelve-point review of systems is essentially negative except what is mentioned in the HPI. PHYSICAL EXAMINATION: VITAL SIGNS: Temperature 36.6, pulse 55, respirations 19, blood pressure 115/50. HEART: Regular rate and rhythm. LUNGS: Clear. ABDOMEN: Soft, positive bowel sounds in all 4 quadrants with a left lower quadrant colostomy noted, tenderness noted in the epigastric to right upper quadrant area. LABORATORY DATA: Hemoglobin on admission was 11.9. She is 10.2, hematocrit 30.5, white count is 5.5, platelets are 186. Sodium 140, potassium 3.5, chloride 108, CO2 29, BUN is 12, creatinine 0.6, GFR is 99 and glucose is 91. PT is 10.2, INR is 1. Total bilirubin 0.3, alkaline phosphatase 74, ALT 14, AST 59. CT of the abdomen and pelvis, she has had a left hemicolectomy. She has got a periostomy hernia containing bowel. No bowel dilatation. There is intra and extrahepatic ductal dilatation, likely related to post-cholecystectomy. IMPRESSION: 1. Epigastric pain. 2. Melenic stool. 3. Intra and extrahepatic ductal dilatation. 4. Anemia. PLAN: 1. EGD tomorrow with Dr. García, possible ERCP if MRCP is abnormal. 2. MRCP in the a.m. 3. Iron studies, B12, and ferritin. 4. Further recommendations to be made after the procedure has been performed. Thank you for allowing us to participate in this patient's care. Please do not hesitate to call with any questions in regard to this consult. [address] [address] CONSULTATION Name: JULIOCESAR MARTIN Room: [address] IN .R.#: [id number] Admission: 05/02/18 Attend Phys: Julio Breen MD Discharge: 05/04/18 Date of : 46 Report #: [id number] ADDENDUM: I have seen and examined the patient and agree with plan that has been outlined by our nurse practitioner, Marisol Mathis. We will proceed with an MRCP tomorrow morning and depending on results of the same, she may need an EGD and/or an EGD with ERCP in the afternoon. I have discussed these plans with the patient as well and she is agreeable to the same. <ELECTRONICALLY SIGNED> By: Jam Rudd DO 05/13/18 0711 1738 15Jam Rudd DO /nt
--- NOTE | 2018-05-22 10:09 | PATH ---
[address] [address] PATHOLOGY RPT PROCEDURE Name: JULIOCESAR BOYD Room: [address] IN ..#: [id number] Admission: 05/02/18 Date of : 46 Discharge: 05/04/18 Report #: [id number] Path Case #: [id number] [facility] Accession Number: [id number] . 01 Material submitted: . DISTAL ESOPHAGEAL BIOPSY . 01 Clinical history: . Rule out Ruiz's . 02 Diagnosis: Distal esophageal biopsy: - Benign gastric/columnar type mucosa with mild nonspecific chronic inflammation, negative for goblet cells/diagnostic Ruiz's metaplasia and dysplasia. (TARAN:grzegorz; 05/06/2018) QMS/05/06/2018 . 02 Electronically signed: . Brayan Mckeon MD, Pathologist NPI- [id number] . 01 Gross description: . Received in formalin labeled "Juliocesar Boyd, distal esophageal BX," is a single segment of gracia soft tissue measuring 0.3 cm in maximum dimension. The specimen is entirely submitted in cassette A1. (TSD; 05/03/2018) TOB/TOB . 02 Pathologist provided ICD-10: K20.9 . 02 CPT . 070776 Performed at: [address], [place], [place] [id number] MD Julián Wilson MD Phone: [phone] Performed at: 02 [facility] [address], [place], [place] [id number] MD Brayan Mckeon MD Phone: [phone]
== END 2018-05-04 14:44 | disposition home or self-care (01) | DRG 377 ==
LOC: M.ERS 21:06 → M.2W 05-02 00:29 → M.TBA-ER 05-02 00:29 → M.2W 05-02 01:28
PROVIDERS: Emergency Medicine; Nurse Practitioner Adult Health; ADMIT Internal Medicine
PROC: 0DB48ZX Excision of Esophagogastric Junction, Via Natural or Artificial Opening Endoscopic, Diagnostic (ICD-10-PCS; principal; 2018-05-03)
DX: K92.1 Melena (principal); N17.0 Acute kidney failure with tubular necrosis; N18.6 End stage renal disease; N39.0 Urinary tract infection, site not specified; E44.1 Mild protein-calorie malnutrition; K21.0 Gastro-esophageal reflux disease with esophagitis; K22.8 Other specified diseases of esophagus; R07.89 Other chest pain; I25.10 Atherosclerotic heart disease of native coronary artery without angina pectoris; K44.9 Diaphragmatic hernia without obstruction or gangrene; E78.00 Pure hypercholesterolemia, unspecified; G89.4 Chronic pain syndrome; K76.89 Other specified diseases of liver; D64.9 Anemia, unspecified; F17.210 Nicotine dependence, cigarettes, uncomplicated; M13.88 Other specified arthritis, other site; G20 Parkinson's disease; E03.9 Hypothyroidism, unspecified; I65.29 Occlusion and stenosis of unspecified carotid artery; Z96.653 Presence of artificial knee joint, bilateral; Z88.1 Allergy status to other antibiotic agents; Z88.8 Allergy status to other drugs, medicaments and biological substances; Z90.49 Acquired absence of other specified parts of digestive tract; Z79.2 Long term (current) use of antibiotics; Z79.82 Long term (current) use of aspirin; Z79.899 Other long term (current) drug therapy; Z86.73 Personal history of transient ischemic attack (TIA), and cerebral infarction without residual deficits; Z93.3 Colostomy status; Z90.710 Acquired absence of both cervix and uterus; Z82.49 Family history of ischemic heart disease and other diseases of the circulatory system

== ENCOUNTER 2018-05-21 18:56 | Inpatient (IN) | payer OTHER, MEDICAID ==
[~2018-05-21] VITALS: Ht 165.1 cm; Wt 63.1 kg
[~2018-05-21 18:56] MED LIST changes: +ACIDOPHILUS1 EAC4 PO; +NITROSTAT0.4 M1 SUBLING
[2018-05-21] MEDS ORDERED: ASPIR 8181 MG PO (19:26)
[2018-05-21] MEDS ORDERED: FISH OIL 1,001000 M2 PO (19:28)
[2018-05-21] MEDS ORDERED: VITAMINC500 PO (19:29)
[2018-05-21 19:37] LABS: ABSOLUTE BASOPHILS 0.1 thou/uL (0.0-0.2); ABSOLUTE EOSINOPHILS 0.1 thou/uL (0.0-0.7); ABSOLUTE LYMPHOCYTES 2.3 thou/uL (0.8-5.3); ABSOLUTE MONOCYTES 0.5 thou/uL (0.0-1.2); ABSOLUTE NEUTROPHILS 4.6 thou/uL (1.6-8.1); BASOPHILS 1.2 %; EOSINOPHILS 1.9 %; HEMATOCRIT 34.2 % (37.0-47.0); HEMOGLOBIN 11.3 gm/dL (12.0-15.0); LYMPHOCYTES 30.1 %; MCH 31.3 pg (26.0-34.0); MCHC 33.2 g/dL (28.0-37.0); MCV 94.3 fL (80.0-100.0); MONOCYTES 6.5 %; MPV 7.6 fl. (7.2-11.1); NUCLEATED RBCS 0 /100WBC; PLATELET COUNT* 242 thou/uL (150-400); POLYS 60.3 %; RBC 3.63 mil/uL (4.20-5.00); RDW-CV 13.2 % (10.5-14.5); WBC 7.6 thou/uL (4.0-11.0)
[2018-05-21 19:41] LABS: ANION GAP 6 mmol/L (7-16); BUN 14 mg/dL (7-18); CALCIUM 8.4 mg/dL (8.5-10.1); CHLORIDE 103 mmol/L (98-107); CO2 27 mmol/L (21-32); CREATININE 0.8 mg/dL (0.6-1.3); GLUCOSE 110 mg/dL (70-99); POTASSIUM 3.6 mmol/L (3.5-5.1); SODIUM 136 mmol/L (136-145)
[2018-05-21 19:43] LABS: PROTIME 10.1 Seconds (9.20-11.50)
[2018-05-21 19:52] LABS: ALBUMIN 3.5 g/dL (3.4-5.0); ALKALINE PHOSPHATASE 74 U/L (46-116); NT-PRO BRAIN NAT PEPTIDE 61 pg/mL (<300); SGOT 19 U/L (15-37); SGPT 8 U/L (30-65); TOTAL BILIRUBIN 0.4 mg/dL (<0.1-1.0); TOTAL PROTEIN 6.9 g/dL (6.4-8.2); TROPONIN-I LEVEL <0.06 ng/mL (<0.06)
[2018-05-21 20:32] LABS: URINE BILIRUBIN NEGATIVE (Negative); URINE BLOOD NEGATIVE (Negative); URINE CLARITY CLEAR; URINE COLOR YELLOW; URINE GLUCOSE-RANDOM NEGATIVE (Negative); URINE KETONES NEGATIVE (Negative); URINE LEUKOCYTES-REFLEX NEGATIVE (Negative); URINE NITRITE-REFLEX NEGATIVE (Negative); URINE PROTEIN NEGATIVE (Negative); URINE SPECIFIC GRAVITY <= 1.005 (1.005-1.030); URINE UROBILINOGEN 0.2 E.U./dl (0.2-1.0)
--- NOTE | 2018-05-21 21:37 | NUR ---
SEE CODE STROKE FORM
[2018-05-21 22:01] VITALS: BP 160/86
[2018-05-21 22:16] VITALS: BP 156/78
[2018-05-21 22:30] VITALS: BP 128/58
[2018-05-21 23:16] VITALS: BP 142/86
[2018-05-21 23:30] VITALS: BP 135/63
[2018-05-21 23:45] VITALS: BP 131/65
[2018-05-22] VITALS (25 sets, daily range): BP systolic 79–151; BP diastolic 34–91
--- NOTE | 2018-05-22 00:49 | NUR ---
MRI HEAD RESULTS BACK. PER DR. AVINA'S NOTE, RESULTS HAVE BEEN COMMUNICATED WITH DR. COTO. DR COTO RECOMMENDED HER COMMUNICATE WITH [facility] NEUROLOGIST AND AT THIS TIME, NO TRANSFER IS NEEDED. PATIENT STABLE. NIH IMPROVING-SEE CHARING. VSS ON 2L O2 NC. PATIENT SLEEPING COMFORTABLY AT THIS TIME.
[2018-05-22 05:35] LABS: HEMATOCRIT 33.4 % (37.0-47.0); HEMOGLOBIN 11.2 gm/dL (12.0-15.0); MCH 31.5 pg (26.0-34.0); MCHC 33.6 g/dL (28.0-37.0); MCV 93.7 fL (80.0-100.0); MPV 7.8 fl. (7.2-11.1); RBC 3.56 mil/uL (4.20-5.00); RDW-CV 13.4 % (10.5-14.5); WBC 6.1 thou/uL (4.0-11.0)
[2018-05-22 05:56] LABS: ALBUMIN 3.2 g/dL (3.4-5.0); CALCIUM 8.5 mg/dL (8.5-10.1); CREATININE 0.6 mg/dL (0.6-1.3); POTASSIUM 3.8 mmol/L (3.5-5.1); TOTAL BILIRUBIN 0.5 mg/dL (<0.1-1.0); TOTAL PROTEIN 6.1 g/dL (6.4-8.2)
[2018-05-22 07:33] LABS: POC CA IONIZED 4.5 mg/dL (4.5-5.3); POC CREATININE 0.7 mg/dL (0.6-1.3); POC HEMOGLOBIN 11.9 g/dL (12.0-17.0); POC POTASSIUM 3.9 mmol/L (3.5-4.9)
[2018-05-22 08:19] LABS: AMP/METHAMP Negative (Negative); BARBITURATES Negative (Negative); BENZODIAZEPINES Negative (Negative); COCAINE Negative (Negative); METHADONE Negative (Negative); OPIATES Negative (Negative); PCP Negative (Negative); THC Negative (Negative)
--- NOTE | 2018-05-22 11:13 | EKG ---
[place] [address] ELECTROCARDIOGRAM REPORT Name: JULIOCESAR MARTIN Room: [address] ADM IN .R.#: [id number] Admission: 05/21/18 Attend Phys: Quita Cormier MD Discharge: Date of : 46 Report #: [id number] THIS REPORT FOR: //name// [facility] ED Test Date: 2018-05-21 Test Time: 19:58:42 Pat Name: JULIOCESAR MARTIN Department: Room: [facility] Gender: F Manager Retail: GL : 1950 Requested By: Maura Christy Order Number: [id number] MD: Flavio Le Measurements Intervals [place] Rate: 72 P: 76 CA: 183 QRS: -39 QRSD: 112 T: 36 QT: 412 QTc: 451 Interpretive Statements Sinus rhythm Borderline IVCD with LAD Abnormal R-wave progression, early transition Compared to ECG 05/01/2018 21:10:16 No significant changes Electronically Signed On 05-22-2018 11:12:58 CDT by Flavio Le [email or web address] <ELECTRONICALLY SIGNED> By: Flavio Le MD, [facility] 05/22/18 1112 57 57 Flavio Le MD, [facility] /EPI
--- NOTE | 2018-05-22 12:05 | 2DMMODE ---
[facility] [address] [place] [address] 2 D/M-MODE ECHOCARDIOGRAM Name: JULIOCESAR MARTIN Room: [address] [facility]#: [id number] Admission: 05/21/18 Attend Phys: Quita Cormier, Discharge: Date of : 46 Date of Service: 05/22/18 1204 Report #: [id number] THIS REPORT FOR: //name// APPROVED REPORT Study performed: 05/22/2018 09:37:38 EXAM: Limited 2D Echocardiogram Patient Location: In-Patient Room #: 006 Status: routine BSA: 1.70 HR: 68 bpm BP: 124/61 mmHg Rhythm: NSR Other Information Study Quality: Good Indications CVA/TIA Limited study for bubble study only. Patient had complete echo recently Echo Enhancing Agent Indication: Rule out Shunt Agent(s) / Amount(s) Used: Agitated Saline 10 cc Left Ventricle The left ventricle is normal size. There is normal LV segmental wall motion. There is normal left ventricular wall thickness. The left ventricular systolic function is normal. The left ventricular ejection fraction is within the normal range. LVEF is 60-65%. The left ventricular diastolic function is normal. Right Ventricle The right ventricle is normal size. The right ventricular systolic function is normal. Atria The left atrium size is normal. Interatrial septum is intact without evidence of ASD or PFO. The right atrium size is normal. Aortic Valve [place] [address] 2 D/M-MODE ECHOCARDIOGRAM Name: JULIOCESAR MARTIN Room: [address] IN M.R.#: [id number] Admission: 05/21/18 Attend Phys: Quita Cormier, Discharge: Date of : 46 Date of Service: 05/22/18 1204 Report #: [id number] Mitral Valve There is mitral annular calcification. No evidence of mitral valve stenosis. Tricuspid Valve The tricuspid valve is normal in structure. Pulmonic Valve Pulmonic valve is not well visualized. Great Vessels The aortic root is normal in size. IVC is normal in size and collapses >50% with inspiration. Pericardium There is no pericardial effusion. <Conclusion> LVEF is 60-65%. Interatrial septum is intact without evidence of ASD or PFO. <ELECTRONICALLY SIGNED> By: Flavio Le MD, [facility] 05/22/18 1204 03 Flavio Le MD, FACC /INF
--- NOTE | 2018-05-22 16:35 | NUR ---
INITIAL ASSESSMENT: Pt evaluated for d/c planning needs. Reviewed chart and spoke with nurse. Pt was off unit for procedure. Will f/u.
--- NOTE | 2018-05-22 17:16 | NUR ---
RECEIVED CONSULT FOR POSSIBLE REHAB ADMISSOIN. CONSULT HAS BEEN ACKNOWLEDGED BY FLAP PRESSER AND DR. TUCKER. PT ADMITTED WITH CVA. PT RECEIVED TPA. PT/OT EVALUATIONS ARE PENDING, NEUROLOGY CONSULT/WORKUP PENDING. WILL FOLLOW ALONG WITH PT TO SEE RESULTS OF MEDICAL WORKUP AND THERAPY EVALUATIONS TO DETERMINE IF PT QUALIFIES FOR ACUTE REHAB. THANK YOU FOR THIS REFERRAL.
--- NOTE | 2018-05-22 18:33 | NUR ---
PT CARE ASSUMED AFTER REPORT. SR/SB ON MONITOR. IVF INFUSING. STROKE PROTOCOL INCLUDING NIH DONE. PT WITH C/O HEADACHE AROUND 1200. PO OXY GIVEN PER ORDER. PT REPORTED MINIMAL RELIEF. BLINDS DRAWN AND QUIET ATMOSPHERE PROVIDED. PT BEGAN TO REQUEST IV NARCOTICS. PT EDUCATED ABOUT STROKE PRECAUTIONS AND TESTING AND THAT IV NARCOTICS WOULD NOT BE GIVEN PER . PT CONTINUED TO PERSIST THROUGHOUT THE AFTERNOON. NOTIFIED OF PT HEADACHE. CT OF HEAD DONE WITH NO NEW FINDINGS. DR PENA NOTIFIED OF PT DEMAND TO SPEAK WITH HIM. DR PENA CAME TO SPEAK WITH PT. IV MORPHINE ORDERED X1 AND GIVEN WITH ADEQUATE RESULTS AZ PT. UDS SENT TO LAB PRIOR TO IV MORPHINE. PT HAD BEEN OBSERVED TO HAVE TREMORS THROUGHOUT THE DAY. TREMORS DISAPPEARED AFTER IV MORPHINE WAS GIVEN. FALL PRECAUTIONS IN PLACE INCLUDING BED ALARM. SLOW TO PROGRESS TOWARDS GOALS. APPEARS TO HAVE CONTINUED L SIDED WEAKNESS.
[2018-05-22 18:40] LABS: URINE BILIRUBIN NEGATIVE (Negative); URINE BLOOD TRACE (Negative); URINE CLARITY CLEAR; URINE COLOR YELLOW; URINE GLUCOSE-RANDOM NEGATIVE (Negative); URINE KETONES NEGATIVE (Negative); URINE LEUKOCYTES NEGATIVE (Negative); URINE NITRITE NEGATIVE (Negative); URINE PROTEIN NEGATIVE (Negative); URINE UROBILINOGEN 0.2 E.U./dl (0.2-1.0)
[2018-05-22 18:49] LABS: AMP/METHAMP Negative (Negative); BARBITURATES Negative (Negative); BENZODIAZEPINES Negative (Negative); COCAINE Negative (Negative); METHADONE Negative (Negative); OPIATES POSITIVE (Negative); PCP Negative (Negative); THC Negative (Negative)
[2018-05-22 18:53] LABS: BACTERIA None Seen /HPF (None Seen); CASTS None Seen /LPF (None Seen); SQUAMOUS >10 Many /LPF (0-3); URINE RBC 3-10 Few /HPF (0-2); URINE WBC 0-5 Rare /HPF (0-5)
[2018-05-22 18:54] LABS: CRYSTALS None Seen /LPF (None Seen)
[2018-05-23] VITALS: BP 100/47
[2018-05-23 03:08] LABS: GLYCOHEMOGLOBIN (HGB A1C) 5.4 % (4.8-5.6)
[2018-05-23 04:00] VITALS: BP 135/56
[2018-05-23 04:19] LABS: CHOLESTEROL 170 mg/dL (<200); HDL CHOLESTEROL 43 mg/dL (>40); LDL CHOLESTEROL 98 mg/dL (<100); TRIGLYCERIDE 149 mg/dL (<150); VLDL 30 mg/dL (<40)
[2018-05-23 04:46] LABS: SERUM ASSESSMENT CLEAR
[2018-05-23 06:00] VITALS: BP 109/48
--- NOTE | 2018-05-23 06:22 | NUR ---
PATIENT PROGRESSING TOWARDS GOALS. NIH OF 3. INCREASED MOVEMENT IN LEFT ARM. VITAL SINGS STABLE. NO ACUTE CHANGES OVER NIGHT. PT STATES SHE IS GETTING MORE SENSATION AND FEELING ON LEFT ARM. CHANGED HER COLOSTOMY BAG LAST NIGHT. SHE BROUGHT HER OWN SUPPLIES FROM AND WAS ABLE TO CHANGE IT ON HER OWN WITH MINIMAL ASSISTANCE. PT ABLE TO GO ON THE COMMODE NO COMPLICATIONS. PT COMPLAINED OF HEADACHE THIS MORNING SAID IT WAS THROBBING PAIN OF 6/10. GAVE PAIN MEDICATION HEADACHE SUBSIDED. CURRENTLY PT SLEEPING. NO VOICED CONCERNS AT THIS TIME WILL CONTINUE TO MONITOR.
[2018-05-23 08:00] VITALS: BP 138/74
[2018-05-23 12:00] VITALS: BP 159/72
[2018-05-23] MEDS ORDERED: LIPITOR80 MG PO ×2 (13:06→13:44)
[2018-05-23 13:21] VITALS: BP 159/72
--- NOTE | 2018-05-23 14:42 | NUR ---
PT DISCHARGED HOME WITH FRIEND. PATIENT HAS BEEN ASKING ME ALL MORNING ABOUT GOING HOME. THE WRITTER RECOMMENDED HAVING PT/OT/ST, NEUROLOGY AND CASE MANAGEMENT SEE BEFORE SHE DISCHARGED HOME. PT WAS GIVEN THE OPTION TO LEAVE AMA ALSO. ALL THE ABOVE INCLUDING REHAB AND CARDIAC REHAB HAVE SEEN THE PATIENT. NIH 2 FOR WEAKNESS ON LEFT AT DISCHARGE BUT PATIENT ABLE TO AMBULATE WITHOUT DIFFICULTY. PAIN RATED 7-8/10 FOR HEADACHE PAIN. PLEASE SEE DR. COTO'S NOTE. DISCHARGE INSTRUCTIONS GONE OVER WITH PATIENT, NO QUESTIONS AT THIS TIME.
--- NOTE | 2018-05-27 08:35 | CON ---
[address] [address] CONSULTATION Name: JULIOCESAR MARTIN Room: [address] IN M.R.#: [id number] Admission: 05/21/18 Attend Phys: Quita Cormier MD Discharge: 05/23/18 Date of : 46 Report #: [id number] THIS REPORT FOR: //name// CC: Quita Ma DATE OF SERVICE: 05/22/2018 HISTORY OF PRESENT ILLNESS: This is a 67-year-old female patient who was evaluated by me for the possibility of stroke. I talked to Dr. Christy, the Emergency Room physician last night and I talked to Dr. Breen, the hospitalist [facility]. The patient indicates that she cannot move the left side. She was in the hospital with GI symptoms and she was found to have a 90% stenosis of the carotid on the right side and was going to follow up with vascular surgeon as an outpatient. Apparently, she had a CT angio last night that showed that the stenosis is less than originally thought on the basis of carotid Doppler. She has a history of pretty involved history in the past and that is from the record and I reviewed all that histories, which varies from a colostomy to question of TIA, cervical degenerative disk disease, history of smoking and traumatic brain injury. At this time, she was admitted with flaccid paralysis of the left side. She received TPA last night. She has no side effect from the TPA. REVIEW OF SYSTEMS: A 14-point review of system does indicate spinal stenosis, Parkinson disease, carotid disease and exploratory laparotomies. PAST MEDICAL HISTORY: Positive for TIAs, but the history is not very clear. FAMILY HISTORY: Negative for early age stroke. SOCIAL HISTORY: She has a history of smoking but does not drink alcohol. PHYSICAL EXAMINATION: NEUROLOGICAL: Indicate that the patient is alert and responsive. She denies anxiety, but she looks anxious. Cranial nerve examination 2 through 12 is unremarkable. Specifically, there is no hemianopsia or any facial weakness. She states she cannot move the left arm, but when I move it, she is able to hold it to some extent and it fall down in jerking fashion. Sensation, she states she has difficulty looking at the sensation on the left side, but she cannot feel it on both sides. GENERAL: She is moderately-built individual who does not have any dysmorphic features of eyes, ears and face. VITAL SIGNS: Blood pressure is 109/56, respirations 11, pulse is 53 and oxygen saturation is 96%. RADIOLOGICAL DATA: She had MRI and CT angio, etc[place] [address] CONSULTATION Name: MARIOJULIOCESAR C Room: [address] IN M.R.#: [id number] Admission: 05/21/18 Attend Phys: Quita Cormier MD Discharge: 05/23/18 Date of : 46 Report #: [id number] There was some question of aneurysm yesterday and she does not have any aneurysms, the best we can tell. She is very anxious and she is now more concerned with aneurysm than anything else. IMPRESSION AND PLAN: The patient is admitted with stroke-like symptoms. Presently, there is no evidence of stroke, which could be demonstrated in this patient. She was treated by tissue plasminogen activator by Emergency Room physician and her symptoms warranted treating with tissue plasminogen activator at that time, especially with her known right carotid stenosis and left-sided weakness. I do not know what else can be done in this patient. I will get an MRI of the C-spine. She will get a noncontrast CT of the head because of the protocol and we will see how she does. The patient was also discussed with development coordinator. More than 50 minutes of time was spent taking care of this patient and majority of that time was spent counseling the patient and coordinating her care. <ELECTRONICALLY SIGNED> By: Gary Granda MD 05/27/18 0835 1203 [id number] Granda MD /nt
--- NOTE | 2018-06-26 14:10 | CON ---
[facility] [address] [place] [address] CONSULTATION Name: JULIOCESAR MARTIN Room: [address] IN M.R.#: [id number] Admission: 05/21/18 Attend Phys: Quita Cormier MD Discharge: 05/23/18 Date of : 46 Report #: [id number] THIS REPORT FOR: //name// CC: Quita Ma ADDENDUM ASSESSMENT: Cerebrovascular accident. PLAN: Recommend continued physical and occupational therapy. Speech and language pathology as needed. <ELECTRONICALLY SIGNED> By: Liv Pratt DO 06/26/18 1410 1228 [id number] Pratt DO /nt
== END 2018-05-23 14:15 | disposition home or self-care (01) | DRG 61 ==
LOC: M.ERS 18:56 → M.ICU 20:10 → M.TBA-ER 20:10 → M.ICU 22:02
PROVIDERS: Emergency Medicine; Internal Medicine; ADMIT Internal Medicine
DX: I63.9 Cerebral infarction, unspecified (principal); G93.40 Encephalopathy, unspecified; G81.94 Hemiplegia, unspecified affecting left nondominant side; I65.21 Occlusion and stenosis of right carotid artery; R47.81 Slurred speech; G20 Parkinson's disease; M47.892 Other spondylosis, cervical region; E03.9 Hypothyroidism, unspecified; E78.00 Pure hypercholesterolemia, unspecified; G89.4 Chronic pain syndrome; F41.9 Anxiety disorder, unspecified; Z93.3 Colostomy status; Z93.6 Other artificial openings of urinary tract status; Z90.49 Acquired absence of other specified parts of digestive tract; Z88.1 Allergy status to other antibiotic agents; Z88.8 Allergy status to other drugs, medicaments and biological substances; Z87.891 Personal history of nicotine dependence; Z82.49 Family history of ischemic heart disease and other diseases of the circulatory system; Z86.73 Personal history of transient ischemic attack (TIA), and cerebral infarction without residual deficits